=== PATIENT | male | born 1935 | race Caucasian/White ===

== ENCOUNTER 2019-09-05 05:32 | Emergency (ER) | payer MEDICARE, BC ==
[~2019-09-05] VITALS: Ht 175.3 cm; Wt 84.1 kg
[~2019-09-05 05:32] MED LIST: ATOR20TA66 PO; BENA1TAB14 PO; MECL-184 PO; VERA120T9 PO; ZOF4T PO
[2019-09-05 05:36] VITALS: BP 168/94
[2019-09-05] MEDS ORDERED: ACET-1025 PO (07:07)
[2019-09-05] MEDS ORDERED: acetaminophen 325mg tablet PO ONE ×2 (07:10→07:15)
[2019-09-05] MEDS ORDERED: cephalexin 250mg capsule PO ONE (07:10)
[2019-09-05] MEDS ORDERED: CEPH500C5 PO (07:12)
== END 2019-09-05 07:45 | disposition home or self-care (01) ==
LOC: ER 05:32
DX: L03.115 Cellulitis of right lower limb (principal); M25.561 Pain in right knee; M79.661 Pain in right lower leg; I25.10 Atherosclerotic heart disease of native coronary artery without angina pectoris; I10 Essential (primary) hypertension; Z98.890 Other specified postprocedural states; Z79.2 Long term (current) use of antibiotics; Z79.899 Other long term (current) drug therapy; W18.09XA Striking against other object with subsequent fall, initial encounter; Y93.89 Activity, other specified; Y92.89 Other specified places as the place of occurrence of the external cause; Y99.8 Other external cause status
CPT/HCPCS: 73564; 93971; 99284

== ENCOUNTER 2022-02-12 20:25 | Emergency (ER) | payer MEDICARE, BC ==
[~2022-02-12] VITALS: Ht 175.3 cm; Wt 68.2 kg
[~2022-02-12 20:25] MED LIST changes: +ASPI-611 PO; +ATOR10TA PO; -ATOR20TA66 PO; -BENA1TAB14 PO; +CLOP75TA34 PO; +HYDR-3972 PO; +LOP12.5T PO; -MECL-184 PO; -VERA120T9 PO; -ZOF4T PO; +herbal laxative PO
[2022-02-12 22:20] VITALS: BP 136/78
== END 2022-02-12 22:21 | disposition home or self-care (01) ==
LOC: ER 20:25
DX: M25.471 Effusion, right ankle (principal); I11.9 Hypertensive heart disease without heart failure; Z79.82 Long term (current) use of aspirin; Z79.899 Other long term (current) drug therapy; W19.XXXA Unspecified fall, initial encounter; Y93.89 Activity, other specified; Y92.89 Other specified places as the place of occurrence of the external cause; Y99.8 Other external cause status
CPT/HCPCS: 29515; 73564; 73610; 99284; L1930

== ENCOUNTER 2022-03-05 09:08 | Day surgery (SDC) | payer MEDICARE, BC ==
[2022-03-05] VITALS (10 sets, daily range): BP systolic 108–146; BP diastolic 60–80
[~2022-03-05] VITALS: Ht 172.7 cm; Wt 79.3 kg
[~2022-03-05 09:08] MED LIST changes: -ATOR10TA PO; +ATOR10TA70 PO; +CLOP75TA33 PO; -CLOP75TA34 PO; +DOCUMENT DATE & TIME OF BETA-BLOCKER PO ONE; -HYDR-3972 PO; -LOP12.5T PO; +LOP25T PO; +ceFAZolin inj. 2,000 MG in dextrose 5%-water 100 ML IV ONE; +famotidine 20mg tablet PO ONE; +ringers solution, lacted 1,000 ML IV SCH
[2022-03-05 10:11] LABS: BASOPHILS % (AUTO) 0.3 % (0-1); EOSINOPHILS # (AUTO) 0.1 X10'3 (0-0.9); EOSINOPHILS % (AUTO) 1.8 % (0-6); LYMPHOCYTES # (AUTO) 1.3 X10'3 (1.1-4.8); LYMPHOCYTES % (AUTO) 15.9 % (21-51); MEAN CORPUSCULAR HEMOGLOBIN 27.2 PG (27.0-31.0); MEAN CORPUSCULAR HGB CONC 32.5 g/dL (33.0-36.5); MEAN CORPUSCULAR VOLUME 83.7 FL (78-98); MEAN PLATELET VOLUME 7.6 FL (7.4-10.4); MONOCYTES # (AUTO) 0.7 X10'3 (0-0.9); MONOCYTES % (AUTO) 8.9 % (2-12); NEUTROPHILS # (AUTO) 5.8 X10'3 (1.8-7.7); NEUTROPHILS % (AUTO) 73.1 % (42-75); PRE OP HEMATOCRIT 40.1 % (42.0-52.0); PRE OP PLATELET COUNT 343 X10'3 (140-440); RED BLOOD COUNT 4.78 X10'6 (4.70-6.10); RED CELL DISTRIBUTION WIDTH 16.3 % (11.5-14.5)
[2022-03-05 10:27] LABS: ALBUMIN 3.4 G/DL (3.4-5.0); ALBUMIN/GLOBULIN RATIO 0.9 (1.1-1.5); ALKALINE PHOSPHATASE 85 IU/L (46-116); BLOOD UREA NITROGEN 14 MG/DL (7-18); BUN/CREATININE RATIO 17.9 (5.4-32.0); CALCIUM 9.4 MG/DL (8.5-10.1); CHLORIDE 105 MMOL/L (99-107); CREATININE 0.78 MG/DL (0.60-1.10); PRE OP ALT 18 U/L (30-65); PRE OP ANION GAP 6 (8-16); PRE OP AST 11 U/L (10-37); PRE OP BILIRUB, TOTAL 0.6 MG/DL (0.0-1.0); PRE OP GLUCOSE 102 MG/DL (70-104); PRE OP POTASSIUM 4.3 MMOL/L (3.4-5.1); PRE OP SODIUM 140 MMOL/L (135-145); TOTAL CARBON DIOXIDE 28.8 MMOL/L (24-32); eGFR > 90 ML/MIN
[2022-03-05] MEDS ORDERED: LIDOcaine 1% 30ml preserv. free vial ONE (10:28)
[2022-03-05] MEDS ORDERED: BUPIVAcaine/PF 2.5 mg/ml (0.25%) 30ml vial ONE (10:28)
[2022-03-05] MEDS ORDERED: fentaNYL/PF 50MCG/1 ML 2ML syringe ONE (10:43)
[2022-03-05 10:45] LABS: PRE OP PROTIME 10.6 SECONDS (9.0-12.0)
[2022-03-05] MEDS ORDERED: morphine 2 MG/ML inj. syringe IV PRN (11:00)
[2022-03-05] MEDS ORDERED: HYDROmorphone/PF 0.2 MG/ML SYRINGE IV PRN (11:00)
[2022-03-05] MEDS ORDERED: ondansetron/PF 4mg/2ml inj IV PRN (11:00)
[2022-03-05] MEDS ORDERED: ringers solution, lacted 1,000 ML IV SCH (11:00)
[2022-03-05] MEDS ORDERED: sevoflurane 250ml liquid IH ONE (11:02)
[2022-03-05] MEDS ORDERED: bacitracin 15gm ointment TP ONE (11:48)
[2022-03-05] MEDS ORDERED: ondansetron/PF 4mg/2ml inj ONE (11:50)
[2022-03-05] MEDS ORDERED: dexamethasone sod phosphate 4mg/ml inj. ONE (11:50)
[2022-03-05] MEDS ORDERED: rocuronium 10mg/ml inj IV ONE (11:50)
[2022-03-05] MEDS ORDERED: glycopyrrolate 0.2mg/ml inj ONE (11:50)
[2022-03-05] MEDS ORDERED: LIDOcaine 2% (20mg/ml) 5ml vial ONE (11:50)
[2022-03-05] MEDS ORDERED: neostigmine methylsulfate 1 MG/ML 10ml vial ONE (11:50)
[2022-03-05] MEDS ORDERED: propofol inj 20 ML IV ONE (11:50)
[2022-03-05] MEDS ORDERED: ePHEDrine 50MG/ML INJ. ONE (11:50)
--- NOTE | 2022-03-05 12:00 | NUR ---
Received from OR via [facility], accompanied by Anesthesiologist ZANDRA and OR NURSE. report given by Anesthesiolgist. PT ON O2 WITH MASK; ABLE TO RESPOND TO VERBAL STIMULI. VICKI PAIN OR DISCOMFORT. 20 G IN L WRIST. LR RUNNING AT 100ML/HR. Addendum: 03/05/22 at 1226 by Chantelle Lyon RN Amended: Links added.
[2022-03-05] MEDS ORDERED: oxyCODONE/APAP 5-325mg tablet PO PRN (12:25)
[2022-03-05] MEDS ORDERED: midazolam 1 mg/ML 2ml injection ONE (13:15)
--- NOTE | 2022-03-05 13:30 | NUR ---
ALL DISCHARGE CRITERIA HAS BEEN MET. VSS, PAIN AT A TOLERABLE LEVEL, VOIDING AND ABLE TO SAFELY AMBULATE AND TRANSFER SELF. IV TAKEN OUT WITHOUT ANY COMPLICATIONS. ALL DISCHARGE INSTRUCTIONS COVERED WITH PATIENT AND ALL QUESTIONS ANSWERED. PATIENT TAKEN OUT VIA WHEELCHAIR WITH ALL BELONGINGS TO PERSONAL VEHICLE WHERE SON ALLA DROVE PATIENT HOME. Addendum: 03/05/22 at 1423 by Chantelle Lyon RN Amended: Links added.
== END 2022-03-05 13:30 | disposition home or self-care (01) ==
LOC: PAS 09:08
PROVIDERS: ATTEND Surgery
DX: C4A.72 Merkel cell carcinoma of left lower limb, including hip (principal); Z79.01 Long term (current) use of anticoagulants; Z79.899 Other long term (current) drug therapy; Z95.1 Presence of aortocoronary bypass graft; Z98.890 Other specified postprocedural states; Z96.641 Presence of right artificial hip joint; I10 Essential (primary) hypertension; E78.5 Hyperlipidemia, unspecified; Z82.49 Family history of ischemic heart disease and other diseases of the circulatory system; Z85.038 Personal history of other malignant neoplasm of large intestine
CPT/HCPCS: 11606; 36415; 80053; 82948; 85025; 85610; 85730; 93005; J0690; J1100; J2405; J2704; J2710; J3010; J3490; J7030; J7060; J7120; Z7506; Z7512; 88305; A4215; A4618; A6253; A6449; A7000; J2250

== ENCOUNTER 2022-04-26 08:23 | Emergency (ER) | payer MEDICARE, BC ==
[~2022-04-26] VITALS: Ht 170.2 cm; Wt 80.0 kg
[~2022-04-26 08:23] MED LIST changes: -DOCUMENT DATE & TIME OF BETA-BLOCKER PO ONE; -ceFAZolin inj. 2,000 MG in dextrose 5%-water 100 ML IV ONE; -famotidine 20mg tablet PO ONE; -ringers solution, lacted 1,000 ML IV SCH
[2022-04-26 08:33] VITALS: BP 131/75
[2022-04-26 09:08] LABS: BASOPHILS % (AUTO) 0.2 % (0-1); EOSINOPHILS # (AUTO) 0.1 X10'3 (0-0.9); EOSINOPHILS % (AUTO) 1.5 % (0-6); HEMATOCRIT 36.9 % (42.0-52.0); HEMOGLOBIN 12.1 g/dl (14.0-17.9); LYMPHOCYTES # (AUTO) 1.1 X10'3 (1.1-4.8); LYMPHOCYTES % (AUTO) 12.4 % (21-51); MEAN CORPUSCULAR HEMOGLOBIN 28.5 PG (27.0-31.0); MEAN CORPUSCULAR HGB CONC 32.8 g/dL (33.0-36.5); MEAN CORPUSCULAR VOLUME 86.9 FL (78-98); MEAN PLATELET VOLUME 7.6 FL (7.4-10.4); MONOCYTES # (AUTO) 0.9 X10'3 (0-0.9); MONOCYTES % (AUTO) 10.5 % (2-12); NEUTROPHILS # (AUTO) 6.8 X10'3 (1.8-7.7); NEUTROPHILS % (AUTO) 75.4 % (42-75); PLATELET COUNT 308 X10'3 (140-440); RED BLOOD COUNT 4.25 X10'6 (4.70-6.10); RED CELL DISTRIBUTION WIDTH 16.7 % (11.5-14.5); WHITE BLOOD COUNT 8.9 X10'3 (4.5-11.0)
[2022-04-26 09:20] LABS: ALANINE AMINOTRANSFERASE 21 U/L (12-78); ALBUMIN 3.2 G/DL (3.4-5.0); ALKALINE PHOSPHATASE 62 IU/L (46-116); ANION GAP 6 (8-16); ASPARTATE AMINO TRANSFERASE 13 U/L (10-37); BILIRUBIN,TOTAL 0.5 MG/DL (0.1-1.0); BLOOD UREA NITROGEN 15 MG/DL (7-18); BUN/CREATININE RATIO 19.7 (5.4-32.0); CALCIUM 9.1 MG/DL (8.5-10.1); CHLORIDE 105 MMOL/L (99-107); CREATININE 0.76 MG/DL (0.60-1.10); GLUCOSE 152 MG/DL (70-104); POTASSIUM 3.8 MMOL/L (3.5-5.1); SODIUM 138 MMOL/L (135-145); TOTAL CARBON DIOXIDE 27.2 MMOL/L (24-32); TOTAL PROTEIN 6.5 G/DL (6.4-8.2); eGFR > 90 ML/MIN
[2022-04-26 10:02] LABS: D-DIMER 0.62 MG/L FEU (0-0.50)
== END 2022-04-26 11:08 | disposition home or self-care (01) ==
LOC: ER 08:23
DX: R07.9 Chest pain, unspecified (principal); I11.9 Hypertensive heart disease without heart failure; Z79.899 Other long term (current) drug therapy
CPT/HCPCS: 36415; 71045; 80053; 83880; 84484; 85025; 85379; 93005; 99285

== ENCOUNTER 2022-09-11 20:09 | Emergency (ER) | payer MEDICARE, BC ==
[~2022-09-11] VITALS: Ht 172.7 cm; Wt 84.1 kg
[2022-09-11 20:28] VITALS: BP 135/71
== END 2022-09-11 22:07 | disposition left against medical advice (07) ==
LOC: ER 20:09
DX: M25.552 Pain in left hip (principal); Z53.21 Procedure and treatment not carried out due to patient leaving prior to being seen by health care provider
CPT/HCPCS: 99281

== ENCOUNTER 2023-08-26 11:56 | Day surgery (SDC) | payer MEDICARE, BC ==
[2023-08-25 15:42] LABS: BASOPHILS % (AUTO) 0.2 % (0-1); EOSINOPHILS # (AUTO) 0.1 X10'3 (0-0.9); EOSINOPHILS % (AUTO) 1.8 % (0-6); LYMPHOCYTES # (AUTO) 1.6 X10'3 (1.1-4.8); LYMPHOCYTES % (AUTO) 21.1 % (21-51); MEAN CORPUSCULAR HEMOGLOBIN 29.9 PG (27.0-31.0); MEAN CORPUSCULAR HGB CONC 33.7 g/dL (33.0-36.5); MEAN CORPUSCULAR VOLUME 88.9 FL (78-98); MEAN PLATELET VOLUME 8.7 FL (7.4-10.4); MONOCYTES # (AUTO) 0.7 X10'3 (0-0.9); MONOCYTES % (AUTO) 9.2 % (2-12); NEUTROPHILS % (AUTO) 67.7 % (42-75); PRE OP HEMATOCRIT 42.6 % (42.0-52.0); PRE OP HEMOGLOBIN 14.3 g/dL (14.0-17.9); PRE OP PLATELET COUNT 257 X10'3 (140-440); PRE OP WHITE BLOOD COUNT 7.4 10'3 (4.8-10.8); RED BLOOD COUNT 4.79 X10'6 (4.70-6.10); RED CELL DISTRIBUTION WIDTH 13.9 % (11.5-14.5)
[2023-08-25 16:01] LABS: ALBUMIN 3.5 G/DL (3.4-5.0); ALKALINE PHOSPHATASE 65 IU/L (46-116); BLOOD UREA NITROGEN 17 MG/DL (7-18); BUN/CREATININE RATIO 22.4 (10.0-20.0); CALCIUM 8.8 MG/DL (8.5-10.1); CHLORIDE 108 MMOL/L (99-107); CREATININE 0.76 MG/DL (0.60-1.10); PRE OP ALT 26 U/L (30-65); PRE OP ANION GAP 12 (8-16); PRE OP AST 15 U/L (10-37); PRE OP BILIRUB, TOTAL 0.3 MG/DL (0.0-1.0); PRE OP GLUCOSE 138 MG/DL (70-104); PRE OP POTASSIUM 3.9 MMOL/L (3.4-5.1); PRE OP SODIUM 144 MMOL/L (135-145); TOTAL CARBON DIOXIDE 24.5 MMOL/L (24-32); TOTAL PROTEIN 6.9 G/DL (6.4-8.2); eGFR > 90 ML/MIN
[2023-08-26] VITALS (8 sets, daily range): BP systolic 128–154; BP diastolic 72–84; PULSE 62–81; RESP 11–16; TEMP 97.4; O2SAT 92–100
[~2023-08-26] VITALS: Ht 172.7 cm; Wt 86.2 kg
[2023-08-26] MEDS: DOCUMENT DATE & TIME OF BETA-BLOCKER PO ONE (05:30)
[2023-08-26] MEDS ORDERED: hydrALAZINE 20mg/ml inj. IV PRN (12:05)
[2023-08-26] MEDS ORDERED: labetalol 20mg/4ml (5mg/ml) syringe IV PRN (12:05)
[2023-08-26] MEDS ORDERED: morphine 2 MG/ML inj. syringe IV PRN (12:05)
[2023-08-26] MEDS ORDERED: fentaNYL/PF 50MCG/1 ML 2ML syringe IV PRN ×2 (12:05)
[2023-08-26] MEDS ORDERED: ondansetron/PF 4mg/2ml inj IV PRN (12:05)
[2023-08-26] MEDS ORDERED: morphine 4 MG/ML inj SYRINge IV PRN (12:05)
[2023-08-26] MEDS: famotidine 20mg tablet PO ONE (12:55)
[2023-08-26] MEDS: cefazolin 2gm/D5W 100mL 100 ML IV ONE (12:55)
[2023-08-26] MEDS: ringers solution, lacted 1,000 ML IV SCH ×2 (12:55→15:49)
[2023-08-26] MEDS ORDERED: LIDOcaine 1% 30ml preserv. free vial ONE (14:20)
[2023-08-26] MEDS ORDERED: BUPIVAcaine/PF 2.5mg/ml (0.25%) 10ml vial ONE (14:20)
[2023-08-26] MEDS ORDERED: sevoflurane 250ml liquid IH ONE (14:36)
[2023-08-26] MEDS ORDERED: fentaNYL/PF 50MCG/1 ML 2ML syringe ONE (14:51)
[2023-08-26] MEDS ORDERED: propofol inj 20 ML IV ONE (14:51)
[2023-08-26] MEDS ORDERED: LIDOcaine 2% (20mg/ml) 5ml vial ONE (14:51)
[2023-08-26] MEDS ORDERED: midazolam 1 mg/ML 2ml injection ONE (14:51)
[2023-08-26] MEDS ORDERED: ondansetron/PF 4mg/2ml inj ONE (14:52)
[2023-08-26] MEDS: BUPIVAcaine/PF 2.5mg/ml (0.25%) 10ml vial IJ ONE (15:07)
[2023-08-26] MEDS ORDERED: ePHEDrine 50MG/ML INJ. ONE (15:11)
[2023-08-26] MEDS ORDERED: HYDROcodone/acetaminophen 5mg/325mg tablet PO PRN (15:45)
== END 2023-08-26 16:39 | disposition home or self-care (01) ==
LOC: PAS 11:56
PROVIDERS: ATTEND Surgery
DX: C4A.59 Merkel cell carcinoma of other part of trunk (principal); R59.0 Localized enlarged lymph nodes; I10 Essential (primary) hypertension; I25.119 Atherosclerotic heart disease of native coronary artery with unspecified angina pectoris; E78.5 Hyperlipidemia, unspecified; I25.2 Old myocardial infarction; G62.9 Polyneuropathy, unspecified; Z86.73 Personal history of transient ischemic attack (TIA), and cerebral infarction without residual deficits; Z85.46 Personal history of malignant neoplasm of prostate; Z79.82 Long term (current) use of aspirin; Z79.891 Long term (current) use of opiate analgesic; Z79.899 Other long term (current) drug therapy; Z95.1 Presence of aortocoronary bypass graft; Z96.641 Presence of right artificial hip joint; Z98.890 Other specified postprocedural states
CPT/HCPCS: 36415; 38531; 80053; 82948; 85025; 88341; 88342; 93005; J0690; J1100; J2250; J2405; J2704; J3010; J3490; J7030; J7120; Z7506; Z7508; Z7512; 88305; A4215; A4618; A7000